=== PATIENT | female | born 1995 | race Caucasian/White ===

== ENCOUNTER 2021-02-13 07:08 | Emergency (ER) | payer OTHER, MEDICAID, SELFPAY ==
[2021-02-13 07:09] VITALS: BP 157/90; PULSE 113; RESP 16; TEMP 37; O2SAT 98; BMI 18.8
--- NOTE | 2021-02-13 08:04 | [facility].EDGENADL ---
ED Disposition Clinical Impression: Abscess of skin or subcutaneous tissue Qualifiers: Site of cutaneous abscess: other site Qualified Code(s): L02.818 - Cutaneous abscess of other sites Disposition: Home, Self-Care Condition on Discharge: Good Instructions: DI for Skin Abscess Referrals: Provider,Referral, [Primary Care Provider] - (Gynecology in 1 to 2 days) Time of Disposition: 08:38 - Critical Care Critical Care Time: No Attestation: On 02/13/21, the high probability of a clinically significant, sudden or life threatening deterioration of the following system(s) required my full and direct attention, intervention and personal management. The time I documented below is in addition to time spent performing reported procedures but includes the following listed in this critical care notation. Medical Decision Making - Medical Records Medical records reviewed: Yes: I reviewed the patient's medical records. - Rhett Inquiry Pt receiving controlled substance: No Vital Signs: 02/13/21 07:09 Temperature 98.6 F Temperature Source Oral Pulse Rate [Radial] 113 H Respiratory Rate 16 Blood Pressure [Right Arm] 157/90 H Blood Pressure Mean [Right Arm] 112 Blood Pressure Position [Right Arm] Sitting 02 Sat by Pulse Oximetry 98 Oxygen Delivery Method Room Air Medical Decision Narrative: 25yo F evaluated for labial lesion. Concern for abscess. Discussed risk/benefits/alternatives. Patient desires to proceed with I&D. See procedure note for details. Scant drainage. Able to pack it. We will have her follow-up with gynecology; having staff make an appointment for the patient. Started on clindamycin as she is allergic to penicillin. Discussed taking antibiotics as directed, appropriate follow-up, return to emergency department parameters. General Adult HPI - General Chief complaint: Skin/Abscess/Foreign Body Stated complaint: possible abcess in genital area Time Seen by Provider: 02/13/21 08:04 Mode of Arrival: Ambulatory Limitations: No Limitations Description of Symptoms (Recalled from ER Triage Doc. by RN): TO ED PER [facility] WITH C/O ABSCESS RT SIDE VAGINAL AREA STARTING 2 DAYS AGO. PT C/O PAIN, SWELLING, DENIES FEVER, CHILLS, NAUSEA, VOMITING. - History of Present Illness HPI narrative: 25yo F that denies significant past medical history reports the emergency department secondary to right-sided labial abscess. Patient reports lesion has been present for 2 to 3 days and quickly worsening. She denies previous episodes similar to this. She denies any fever, nausea/vomit/diarrhea. Nothing improves it. Walking hurts. - Related Data Allergies Allergy/AdvReac Type Severity Reaction Status Date / Time Penicillins Allergy Verified 02/13/21 07:20 [facility] History - Hepatitis A Screen Drug use history?: No High risk sexual behaviors?: No History of sexually transmitted infection?: No Currently employed?: No Childcare worker?: No Do you have indoor plumbing?: Yes Do you have electricity?: Yes Attestation statement:: This patient has been screened for Hepatitis A risk factors. I have reviewed the patient's past medical history: Yes - Social History Smoking Status: Current every day smoker Family Hx:: No significant family history ROS Obtained: Yes All systems reviewed & no additional complaints - Integumentary/Breasts Skin/Breast: Reports as per HPI Physical Exam - General General appearance: alert, in no apparent distress - Head Head exam: atraumatic, normocephalic, normal inspection - Eye Eye exam: Present: normal appearance - ENT ENT exam: Present: normal exam - Neck Neck exam: Present: normal inspection - Respiratory Respiratory exam: Absent: respiratory distress - Cardiovascular Cardiovascular exam: Present: normal rhythm, tachycardia - Abdominal Exam Abdominal exam: Present: soft. Absent: distention - External exam: Present: other (Swollen, tender to palpate right labi
--- NOTE | 2021-02-13 08:15 | PC.NURSE ---
ABSCESS LANCED PER DR WALDROP WITH FEMALE NURSE AT BEDSIDE
--- NOTE | 2021-02-13 08:41 | PC.NURSE ---
Follow up appointment mad for pt with Dr Graham on Thursday 02/15 at 9:45am
[2021-02-13 08:50] VITALS: BP 135/74; PULSE 111; RESP 16; TEMP 37; O2SAT 98
== END 2021-02-13 08:52 | disposition home or self-care (01) ==
PROVIDERS: Emergency Provider Emergency Medicine
DX: N76.4 Abscess of vulva (principal)
CPT/HCPCS: 56405; 99282